=== PATIENT | female | born 1995 ===

== ENCOUNTER 2019-05-10 02:36 | Emergency (ER) | payer OTHER ==
[~2019-05-10] VITALS: Ht 160 cm; Wt 59.0 kg
[~2019-05-10 02:36] MED LIST: BENADRYL25 MG PO; MEDROLPACK PO; ZYRTEC10 M3 PO
[2019-05-10] MEDS ORDERED: KETO10TA2 PO (07:44)
== END 2019-05-10 08:34 | disposition home or self-care (01) ==
LOC: ER 02:36
DX: R00.2 Palpitations (principal); R42 Dizziness and giddiness; R51 Headache